=== PATIENT | male | born 1965 | race Caucasian/White ===

== ENCOUNTER 2023-09-19 11:02 | Emergency (ER) | payer BC, OTHER ==
[~2023-09-19] VITALS: Ht 188 cm; Wt 99.8 kg
[2023-09-19] MEDS ORDERED: ONDANSETRON HCL/PF 4 MG/2 ML VIAL ONE (13:34)
[2023-09-19] MEDS ORDERED: MORPHINE SULFATE INJ 4 MG/ML DISP.SYRIN ONE (13:34)
[2023-09-19] MEDS: MORPHINE SULFATE INJ 2 MG/ML DISP.SYRIN IV ONE (13:44)
[2023-09-19] MEDS: ONDANSETRON HCL/PF - ER 4 MG/2 ML VIAL IV ONE (13:44)
[2023-09-19 13:55] LABS: BASOPHILS # (AUTO) 0.1 K/uL (0.0-0.2); BASOPHILS % (AUTO) 2.1 % (0.0-2.0); EOSINOPHILS # (AUTO) 0.2 K/uL (0.0-0.7); EOSINOPHILS % (AUTO) 4.1 % (0.0-6.0); HEMATOCRIT 48 % (39-51); HEMOGLOBIN 16.1 g/dL (13.5-17.5); LYMPHOCYTES # (AUTO) 1.5 K/uL (0.8-4.8); LYMPHOCYTES % (AUTO) 32.3 % (20.0-44.0); MEAN CORPUSCULAR HEMOGLOBIN 33 PG (26.0-33.0); MEAN CORPUSCULAR HGB CONC 34 g/dl (31.0-36.0); MEAN CORPUSCULAR VOLUME 99 fL (80-96); MONOCYTES # (AUTO) 0.4 K/uL (0.1-1.30); MONOCYTES % (AUTO) 7.4 % (2.0-12.0); NEUTROPHILS # (AUTO) 2.6 K/uL (1.8-8.9); NEUTROPHILS % (AUTO) 54.1 % (43.0-81.0); PLATELET COUNT (AUTO) 195 K/uL (150-450); RED BLOOD CELL COUNT(AUTO) 4.89 MIL/uL (4.5-6.0); RED CELL DISTRIBUTION WIDTH 14.8 % (11.5-15.0); WHITE BLOOD COUNT (AUTO) 4.8 K/uL (4.3-11.0)
[2023-09-19] MEDS ORDERED: IOHEXOL-350 100 ML VIAL IV ONE (14:02)
[2023-09-19] MEDS ORDERED: CT SWABBABLE VALVE TRANS SET 1 EA INFUS.SET MC ONE (14:02)
[2023-09-19 14:09] LABS: CALCIUM, SERUM 8.8 mg/dL (8.5-10.1); CREATININE 1.1 mg/dL (0.6-1.3); POTASSIUM 3.8 mmol/L (3.5-5.1)
[2023-09-19] MEDS: VALPROATE 500 MG in IV D5W 100 ML IV ONE (15:40)
[2023-09-19] MEDS ORDERED: dexaMETHasone SOD PHOSPHATE 1 ML ONE (15:41)
[2023-09-19] MEDS: dexaMETHasone SOD PHOSPHATE 10 MG/ML VIAL IV ONE (15:46)
[2023-09-19] MEDS ORDERED: HYDR-3972 PO (15:50)
[2023-09-19] MEDS ORDERED: NAPR-1164 PO (15:50)
[2023-09-19 16:49] VITALS: BP 126/78; TEMP 98; O2SAT 99
== END 2023-09-19 16:51 | disposition home or self-care (01) ==
LOC: ER 11:02
DX: R51.9 Headache, unspecified (principal)
CPT/HCPCS: 99285; 70487; 96365; 96375; 70496; 85025; 80048; 36415; 70450; J1100; J2270; J2405; J7060; J3490; Q9967